=== PATIENT | female | born 1990 | race African-American/Black ===

== ENCOUNTER 2017-06-06 02:58 | Emergency (ER) | payer OTHER ==
[2017-06-06 04:04] VITALS: BP 138/88; PULSE 92; BMI 30.6
--- NOTE | 2017-06-06 04:07 | PDOC ---
History of Present Illness - General History Source: Patient Exam Limitations: No Limitations - History of Present Illness Initial Comments: 06/06/17 04:56 The patient is a 27 year old female with no significant past medical history, who presents to the ED with a worsening toothache that began a week ago. Patient states the toothache has been causing a migraine on the left side of her face. She also has vomiting 2x today. Patient is scheduled to visit the dentist tomorrow. Patient denies fever, chills, diarrhea, hematochezia. Allergies: Penicillin <Andrea Yoon - Last Filed: 06/06/17 04:55> <Megan Preston - Last Filed: 06/06/17 05:20> - General Chief Complaint: Toothache Stated Complaint: MOUTH PAIN Time Seen by Provider: 06/06/17 04:06 Past History <Andrea Yoon - Last Filed: 06/06/17 04:55> - Immunization History Immunization Up to Date: No - Suicide/Smoking/Psychosocial Hx Smoking History: Never smoked Have you smoked in the past 12 months: No Information on smoking cessation initiated: No Hx Alcohol Use: No Drug/Substance Use Hx: No Substance Use Type: None <Megan Preston - Last Filed: 06/06/17 05:20> - Past Medical History Allergies/Adverse Reactions: Allergies Allergy/AdvReac Type Severity Reaction Status Date / Time Penicillins Allergy Mild Rash Verified 06/06/17 04:03 Home Medications: Ambulatory Orders Ibuprofen [Motrin -] 800 mg PO TID PRN #30 tablet 11/30/15 Oseltamivir Phosphate [Tamiflu] 75 mg PO BID #10 capsule 11/30/15 Ibuprofen [Motrin -] 600 mg PO TID #21 tablet 06/06/17 Review of Systems - Review of Systems Able to Perform ROS?: Yes Comments:: 06/06/17 04:56 GENERAL/CONSTITUTIONAL: No fever or chills. No weakness. HEAD, EYES, EARS, NOSE AND THROAT: + toothache. No change in vision. No ear pain or discharge. No sore throat. CARDIOVASCULAR: No chest pain or shortness of breath. RESPIRATORY: No cough, wheezing, or hemoptysis. GASTROINTESTINAL: No nausea, vomiting, diarrhea or constipation. GENITOURINARY: No dysuria, frequency, or change in urination. MUSCULOSKELETAL: No joint or muscle swelling or pain. No neck or back pain. SKIN: No rash NEUROLOGIC: No headache, vertigo, loss of consciousness, or change in strength/ sensation. ENDOCRINE: No increased thirst. No abnormal weight change. HEMATOLOGIC/LYMPHATIC: No anemia, easy bleeding, or history of blood clots. ALLERGIC/IMMUNOLOGIC: No hives or skin allergy. <Andrea Yoon - Last Filed: 06/06/17 04:55> *Physical Exam - Vital Signs Last Vital Signs Temp Pulse Resp BP Pulse Ox 92 H 14 138/88 100 06/06/17 04:03 06/06/17 04:03 06/06/17 04:03 06/06/17 04:03 - Physical Exam Comments: 06/06/17 04:56 GENERAL: Awake, alert, and fully oriented, in no acute distress HEAD: No signs of trauma EYES: PERRLA, EOMI, sclera anicteric, conjunctiva clear ENT: Auricles normal inspection, hearing grossly normal, nares patent, oropharynx clear without exudates. Moist mucosa NECK: Normal ROM, supple, no lymphadenopathy, JVD, or masses LUNGS: Breath sounds equal, clear to auscultation bilaterally. No wheezes, and no crackles HEART: Regular rate and rhythm, normal S1 and S2, no murmurs, rubs or gallops ABDOMEN: Soft, nontender, normoactive bowel sounds. No guarding, no rebound. No masses EXTREMITIES: Normal range of motion, no edema. No clubbing or cyanosis. No cords, erythema, or tenderness NEUROLOGICAL: Cranial nerves II through XII grossly intact. Normal speech, normal gait SKIN: Warm, Dry, normal turgor, no rashes or lesions noted. <Andrea Yoon - Last Filed: 06/06/17 04:55> - Vital Signs Last Vital Signs Temp Pulse Resp BP Pulse Ox 92 H 14 138/88 100 06/06/17 04:03 06/06/17 04:03 06/06/17 04:03 06/06/17 04:03 <Megan Preston - Last Filed: 06/06/17 05:20> ED Treatment Course - Medications Given in the ED: ED Medications Discontinued Medications Generic Name Dose Route Start Last Admin Trade Name Freq PRN Reason Stop Dose Admin Metronidazole 2,000 mg 06/06/17 04:41 06/06/17 04:47 Flagyl - PO 06/06/17 04:42 2,000 mg NOW ONE Administration Oxycodone/Acetaminophen 2 combo 06/06/17 04:42 06/06/17 04:47 Percocet 5/325 - PO 06/06/17 04:43 2 combo ONCE ONE Administration <Andrea Yoon - Last Filed: 06/06/17 04:55> *DC/Admit/Observation/Transfer - Attestations Scribe Attestion: 06/06/17 04:56 Documentation prepared by Andrea Yoon, acting as medical unit secretary for Megan Preston MD. <Andrea Yoon - Last Filed: 06/06/17 04:55> - Discharge Dispostion Admit: No <Megan Preston - Last Filed: 06/06/17 05:20> Diagnosis at time of Disposition: Tooth ache - Discharge Dispostion Disposition: HOME Condition at time of disposition: Improved - Patient Instructions Printed Discharge Instructions: DI for Tooth Decay, DI for Dental Pain
[2017-06-06] MEDS ORDERED: metroNIDAZOLE 250 MG TABLET PO ONE (04:41)
[2017-06-06] MEDS ORDERED: IBUPROFEN 600 MG TABLET (FP) PO ONE (04:42)
[2017-06-06] MEDS ORDERED: metroNIDAZOLE 250 MG TABLET ONE (04:45)
== END 2017-06-06 05:25 | disposition home or self-care (01) ==
LOC: JER 02:58
DX: K08.89 Other specified disorders of teeth and supporting structures (principal)
CPT/HCPCS: 99281-25

== ENCOUNTER 2018-10-04 17:29 | Emergency (ER) | payer OTHER ==
--- NOTE | 2018-10-04 17:41 | PDOC ---
Rapid Medical Evaluation Time Seen by Provider: 10/04/18 17:39 Medical Evaluation: Allergies Allergy/AdvReac Type Severity Reaction Status Date / Time Penicillins Allergy Mild Rash Verified 06/06/17 04:03 10/04/18 17:39 I performed a brief in-person evaluation of this patient. Chief complaint is: Right axillary abscess, reports fevers/malaise at home Pertinent physical exam findings include: T 100.5, HR 111. right axillary abscess with some surrounding erythema I have ordered the following: Basic labs, cultures Patient will proceed to the ED for further evaluation. Discharge Disposition - Diagnosis Abscess, SIRS (systemic inflammatory response syndrome) - Referrals - Patient Instructions - Post Discharge Activity
[2018-10-04 17:43] VITALS: BP 130/80; PULSE 112; TEMP 100.5; BMI 29.9
[2018-10-04 18:56] LABS: BASO % 0.2 % (0-2.0); EOS % 0.9 % (0-4.5); HEMATOCRIT 38.2 % (32.4-45.2); HEMOGLOBIN 12.9 GM/dL (10.7-15.3); LYMPH % 15.4 % (8-40); MCH 29.7 pg (25.7-33.7); MCHC 33.7 g/dl (32.0-36.0); MEAN PLT VOLUME 9.2 fl (7.5-11.1); MONO % 7.5 % (3.8-10.2); PLATELET COUNT 284 K/MM3 (134-434); RBC 4.33 M/mm3 (3.60-5.2); RDW 12.8 % (11.6-15.6); WHITE BLOOD COUNT 14.4 K/mm3 (4.0-10.0)
[2018-10-04] MEDS ORDERED: ACETAMINOPHEN 325 MG TABLET (FP) PO ONE (19:09)
[2018-10-04] MEDS ORDERED: SODIUM CHLORIDE 0.9% 500 ML INFUS.BAG IV ONE (19:09)
[2018-10-04] MEDS ORDERED: ACETAMINOPHEN 325 MG TABLET (FP) ONE (19:17)
--- NOTE | 2018-10-04 19:27 | PDOC ---
History of Present Illness - General Chief Complaint: Wound Stated Complaint: SWOLLEN RT ARM Time Seen by Provider: 10/04/18 17:39 - History of Present Illness Initial Comments: The patient is a 28F w/ no reported PMH who presents for evaluation of 1wk of R axillary swelling/pain w/ associated fevers. Denies injury/trauma/wound to the area. Endorses concominant L wrist pain that is intermittent w/o overlying erythema or swelling and w/o recent trauma. Denies migrating joint pain or other arthritis. Denies history of skin infections Endorses distant history of chlamydia s/p treatment Endorses multiple sexual partners w/ intermittent use of condoms 10/04/18 19:20 Past History - Past Medical History Allergies/Adverse Reactions: Allergies Allergy/AdvReac Type Severity Reaction Status Date / Time Penicillins Allergy Mild Rash Verified 06/06/17 04:03 Home Medications: Ambulatory Orders Ibuprofen [Motrin -] 800 mg PO TID PRN #30 tablet 11/30/15 Cephalexin Monohydrate [Keflex -] 500 mg PO Q6H 10 Days #40 capsule 10/04/18 Sulfamethoxazole/Trimethoprim [Bactrim Ds -] 2 tab PO BID 10 Days #40 tablet Asthma: Yes COPD: No - Surgical History Cardiac Surgery: No Lung Surgery: No - Immunization History Immunization Up to Date: No - Suicide/Smoking/Psychosocial Hx Smoking History: Never smoked Have you smoked in the past 12 months: No Information on smoking cessation initiated: No Hx Alcohol Use: No Drug/Substance Use Hx: No Substance Use Type: None Review of Systems - Review of Systems Able to Perform ROS?: Yes Comments:: GENERAL/CONSTITUTIONAL: No chills. No weakness HEAD, EYES, EARS, NOSE AND THROAT: No change in vision. No ear pain or discharge. No sore throat CARDIOVASCULAR: No chest pain or shortness of breath RESPIRATORY: Denies cough, hemoptysis GASTROINTESTINAL: No nausea, vomiting, diarrhea or constipation GENITOURINARY: No dysuria, frequency, or change in urination MUSCULOSKELETAL: +L wrist pain SKIN: R axillary per HPI NEUROLOGIC: No headache, vertigo, loss of consciousness, or change in strength/ sensation ENDOCRINE: No increased thirst. No abnormal weight change HEMATOLOGIC/LYMPHATIC: No anemia, easy bleeding, or history of blood clots ALLERGIC/IMMUNOLOGIC: No hives or skin allergy 10/04/18 19:27 Is the patient limited [place]ian proficient: No *Physical Exam - Vital Signs Last Vital Signs Temp Pulse Resp BP Pulse Ox 100.5 F H 112 H 18 130/80 97 10/04/18 17:40 10/04/18 17:40 10/04/18 17:40 10/04/18 17:40 10/04/18 17:40 - Physical Exam Comments: GENERAL: Awake, alert, and fully oriented, in no acute distress HEAD: No signs of trauma, normocephalic, atraumatic EYES: PERRLA, EOMI, sclera anicteric, conjunctiva clear ENT: Hearing grossly normal, nares patent, oropharynx clear without exudates. Moist mucosa LUNGS: No distress, speaks full sentences, clear to auscultation bilaterally HEART: Regular rate and rhythm, normal S1 and S2, no murmurs appreciated, peripheral pulses normal and equal bilaterally ABDOMEN: Soft, nontender, normoactive bowel sounds. No guarding, no rebound. No masses EXTREMITIES : R proximal brachial/axillary swelling/induration/erythema w/ underlying fluctuance (approx 3cm x 3cm on exam) that is exquisitely TTP NEUROLOGICAL: Cranial nerves II through XII grossly intact. Normal speech, normal gait, no focal sensorimotor deficits SKIN: Warm, Dry 10/04/18 23:12 Moderate Sedation - Procedure Monitoring Vital Signs: Procedure Monitoring Vital Signs Temperature 100.5 F H 10/04/18 17:40 Pulse Rate 112 H 10/04/18 17:40 Respiratory Rate 18 10/04/18 17:40 Blood Pressure 130/80 10/04/18 17:40 O2 Sat by Pulse Oximetry (%) 97 10/04/18 17:40 Procedures - Incision and Drainage I&D Site: Right: Axilla Anesthesia: 1% Lidocaine w/ Epi Volume(ml): 8 Blade Size: 11 Attempts: 1 Iodinated Packin in Dressing: Yes (dry gauze, kerlix) ED Treatment Course - LABORATORY CBC & Chemistry Diagram: 10/04/18 18:13 10/04/18 18:13 - ADDITIONAL ORDERS Additional order review: 10/04/18 18:13 RBC 4.33 MCV 88.0 MCHC 33.7 RDW 12.8 MPV 9.2 Neutrophils % 76.0 Lymphocytes % 15.4 Monocytes % 7.5 Eosinophils % 0.9 Basophils % 0.2 Medical Decision Making - Medical Decision Making The pt is a 28F w/ no reported PMH who presents for evaluation of 1wk of R axillary swelling/tenderness/induration concerning for abscess ED Course CMP, CBC Tylenol 975mg PO once NS 1L IV once 10/04/18 19:28 Leukocytosis to 14 10/04/18 19:30 POCUS of RUE lesion w/ approx 1cm x 1cm soft tissue loculated fluid collection consistent w/ abscess S/p I&D of R axillary abscess, for further details, refer to procedure note -Wound culture sent -Vanc 1g IV once Plan for patient to be admitted to obs given leukocytosis, fever on presentation , and abscess -Patient states she has an important interview in the morning and is unwilling to stay for obs -Rx sent to pt's pharmacy for Bactrim and Keflex -Wound care instructions, discharge instructions, return precautions, and follow up instructions given -Patient verbalized understanding Note: The patient insists on leaving the emergency dept and is signing out against medical advice. The patient understands the risks and complications that may result from the refusal of medical care and admission which includes and permanent disability. The patient has the mental capacity of understanding the risks of refusing care and is capable of making an informed decision. The patient was instructed to return to the emergency department should she change her mind regarding medical care or should her condition worsen. Dispo: AMA 10/04/18 23:14 *DC/Admit/Observation/Transfer Diagnosis at time of Disposition: Abscess, SIRS (systemic inflammatory response syndrome) - Discharge Dispostion Disposition: AGAINST MEDICAL ADVICE Condition at time of disposition: Stable Decision to Admit order: No - Prescriptions Prescriptions: Cephalexin Monohydrate [Keflex -] 500 mg PO Q6H 10 Days #40 capsule Sulfamethoxazole/Trimethoprim [Bactrim Ds -] 2 tab PO BID 10 Days #40 tablet - Referrals Referrals: [facility] [place] [place] [Provider Group] Mateusz Chino MD [Staff Physician] - - Patient Instructions Printed Discharge Instructions: DI for Skin Abscess Additional Instructions: You were seen in the Emergency Department today for a right axially abscess was drained. Be sure to remove the packing, wash the wound with soap and water, pat dry, and re-pack. Return to the Emergency Department if you develop fevers/ chills, redness, increased drainage, worsening pain, or any new/concerning symptoms. Review the handout given at discharge. Follow up with your primary care provider and the referral given. A prescription for antibiotics was sent to your pharmacy, [facility] on [address] ( Keflex and Bactrim). Take as directed. - Post Discharge Activity Forms/Work/School Notes: Back to Work
[2018-10-04 19:29] LABS: ALBUMIN 4.1 g/dl (3.4-5.0); ALK PHOS 76 U/L (45-117); ANION GAP 8 MMOL/L (8-16); BILIRUBIN,TOTAL 0.6 mg/dL (0.2-1); BLOOD UREA NITROGEN 6 mg/dL (7-18); CALCIUM 9.2 mg/dL (8.5-10.1); CHLORIDE 106 mmol/L (98-107); CO2 25 mmol/L (21-32); CREATININE 0.7 mg/dL (0.55-1.3); GLUCOSE,RANDOM 90 mg/dL (74-106); POTASSIUM 3.8 mmol/L (3.5-5.1); SGOT/AST 15 U/L (15-37); SGPT/ALT 49 U/L (13-61); SODIUM 139 mmol/L (136-145); TOT PROT 7.9 g/dl (6.4-8.2)
--- NOTE | 2018-10-04 19:43 | PDOC ---
Attending Attestation - HPI HPI: This patient is a 28 year old female with no significant PMHxm who presents with 1 week of right armpit pain and swelling. Patient reports fevers and general malaise at home. She also reports intermittent left wrist pain. She denies any recent injuries or trauma. - Physicial Exam PE: GENERAL: Awake, alert, and fully oriented, in no acute distress. Febrile. HEAD: No signs of trauma EYES: PERRLA, EOMI, sclera anicteric, conjunctiva clear. NECK: Normal ROM, supple, no lymphadenopathy, JVD, or masses LUNGS: Breath sounds equal, clear to auscultation bilaterally. No wheezes, and no crackles HEART: Tachycardic, regular rhythm, normal S1 and S2, no murmurs, rubs or gallops ABDOMEN: Soft, nontender, normoactive bowel sounds. No guarding, no rebound. No masses EXTREMITIES: Right arm at the upper portion of the armpit - 1x1 cm abscess with fluctuance, mild surrounding errythema, more fluctuance and indurated, hot and tender to touch. Pulses and sensation intact in arm. No crepitus palpated. Normal range of motion. No clubbing or cyanosis. No cords. NEUROLOGICAL: Cranial nerves II through XII grossly intact. Normal speech, normal gait SKIN: Hot to touch. Bedside US shows 1 by 1 cm right axillary abscesses on skin , no tracking underneath fascial planes. No track camp in the arms. <Mariana Sky - Last Filed: 10/04/18 22:18> - Resident Resident Name: Pito José - ED Attending Attestation I have performed the following: I have examined & evaluated the patient, The case was reviewed & discussed with the resident, I agree w/resident's findings & plan, Exceptions are as noted - Medical Decision Making 10/04/18 19:42 I, Dr. Keira Lopez, DO, attest that this document has been prepared under my direction and personally reviewed by me in its entirety. I further attest, that it accurately reflects all work, treatment, procedures and medical decision -making performed by me. 10/04/18 21:05 a/p: 28yo female with R armpit abscess -worsening pain x 1 week -fever today -will send labs, cultures, will need iv abx -will send wound cultures -will give ivf hydraiton, tylenol, LET and then I&D the abscess -will give iv vanco 10/04/18 21:08 fever, tachy, elevated wbc will place in obs for iv abx 10/04/18 22:14 pt s/p I&D by the resident culture sent from the wound will give iv vanco pt states she cannot stay for obs or in the hospital as she has an important interview in the AM states she will take oral abx and sign out ama willing to stay for 1 dose of iv abx tonight vanco hanging will dc with bactrim/keflex 10/04/18 22:17 Note: The patient insists on leaving the emergency dept and is signing out against medical advice. The patient understands the risks and complications that may result from the refusal of medical care and admission which includes and permanent disability. The patient has the mental capacity of understanding the risks of refusing care and is capable of making an informed decision. The patient was instructed to return to the emergency department should she change she mind regarding medical care or should she condition worsen. The patient signed the Against Medical Advice form. 10/04/18 22:55 discussed risk of worsening infection by signing out AMA discussed risk of infection in the blood <Keira Lopez - Last Filed: 10/04/18 23:56> *DC/Admit/Observation/Transfer <Keira Lopez - Last Filed: 10/04/18 23:56> Diagnosis at time of Disposition: Abscess, SIRS (systemic inflammatory response syndrome) - Discharge Dispostion Disposition: AGAINST MEDICAL ADVICE Condition at time of disposition: Stable - Prescriptions Prescriptions: Cephalexin Monohydrate [Keflex -] 500 mg PO Q6H 10 Days #40 capsule Sulfamethoxazole/Trimethoprim [Bactrim Ds -] 2 tab PO BID 10 Days #40 tablet - Referrals Referrals: [facility] [place] [facility] [place] [Provider Group] Mateusz Chino MD [Staff Physician] - - Patient Instructions Printed Discharge Instructions: DI for Skin Abscess Additional Instructions: You were seen in the Emergency Department today for a right axially abscess was drained. Be sure to remove the packing, wash the wound with soap and water, pat dry, and re-pack. Return to the Emergency Department if you develop fevers/ chills, redness, increased drainage, worsening pain, or any new/concerning symptoms. Review the handout given at discharge. Follow up with your primary care provider and the referral given. A prescription for antibiotics was [facility], [facility] [address] ( Keflex and Bactrim). Take as directed. - Post Discharge Activity Forms/Work/School Notes: Back to Work
[2018-10-04] MEDS ORDERED: LIDOCAINE 2.5%/PRILOCAINE 2.5% (5 Gram/TUBE) TP ONE ×2 (20:41→21:04)
[2018-10-04] MEDS ORDERED: VANCOMYCIN 1 GRAM (PRE-DOCKED) 1,000 MG/250 ML BAG IVPB ONE ×2 (20:42→22:26)
[2018-10-04] MEDS ORDERED: IBUPROFEN 400 MG TABLET (FP) PO ONE ×2 (21:26→21:39)
[2018-10-04] MEDS ORDERED: LIDOCAINE 1%/EPI 1:100000 (50 ML MULTI DOSE VIAL) INF ONE (21:26)
[2018-10-04] MEDS ORDERED: LIDOCAINE 1%/EPI 1:100000 (20 ML MULTI DOSE VIAL) ONE (21:39)
[2018-10-04] MEDS ORDERED: diphenhydrAMINE HCL 25 MG CAPSULE (FP) PO ONE ×2 (23:05→23:25)
[2018-10-04 23:29] LABS: URINE APPEARANCE CLOUDY; URINE BILIRUBIN NEGATIVE (<2.0 mg/dL); URINE COLOR AMBER; URINE GLUCOSE (UA) NEGATIVE (NEGATIVE); URINE KETONE 1+ (NEGATIVE); URINE LEUK ESTERASE 1+ (NEGATIVE); URINE NITRITE NEGATIVE (NEGATIVE); URINE PROTEIN 2+ (NEGATIVE); URINE UROBILINOGEN NEGATIVE mg/dL (0.2-1.0)
[2018-10-04 23:37] LABS: EPI CELLS FEW /HPF (FEW); URINE BACTERIA RARE /hpf (NONE SEEN); URINE HYALINE CAST 5 /lpf; URINE MUCUS MANY
== END 2018-10-05 00:04 | disposition left against medical advice (07) ==
LOC: JER 17:29
PROC: 3E0337Z Introduction of Electrolytic and Water Balance Substance into Peripheral Vein, Percutaneous Approach (ICD-10-PCS; principal; 2018-10-04)
PROC: 3E03329 Introduction of Other Anti-infective into Peripheral Vein, Percutaneous Approach (ICD-10-PCS; 2018-10-04)
PROC: 0H9BXZZ Drainage of Right Upper Arm Skin, External Approach (ICD-10-PCS; 2018-10-04)
DX: L02.91 Cutaneous abscess, unspecified (principal); R65.10 Systemic inflammatory response syndrome (SIRS) of non-infectious origin without acute organ dysfunction
CPT/HCPCS: 36415; 80053; 81003; 81015; 83605; 84703; 85025; 87040; 87070; 87086; 87186; 87205; 99282-25

== ENCOUNTER 2021-05-07 00:17 | Emergency (ER) | payer OTHER ==
[2021-05-07 00:30] VITALS: BMI 33.0
[2021-05-07] MEDS ORDERED: SODIUM CHLORIDE 0.9% 500 ML INFUS.BAG IV ONE (02:21)
[2021-05-07 03:35] LABS: BASO % 0.8 % (0-2.0); HEMATOCRIT 37.3 % (32.4-45.2); HEMOGLOBIN 12.6 GM/dL (10.7-15.3); LYMPH % 21.8 % (8-40); MCH 29.3 pg (25.7-33.7); MCHC 33.8 g/dl (32.0-36.0); MEAN CELL VOLUME 86.7 fl (80-96); MEAN PLT VOLUME 8.8 fl (7.5-11.1); MONO % 8.3 % (3.8-10.2); NEUT % 67.1 % (42.8-82.8); PLATELET COUNT 241 10^3/uL (134-434); RDW 13.9 % (11.6-15.6); WHITE BLOOD COUNT 8.3 K/mm3 (4.0-10.0)
[2021-05-07 03:54] LABS: CHLORIDE 105 mmol/L (98-107); SODIUM 134 mmol/L (136-145)
[2021-05-07 03:58] LABS: ALBUMIN 3.5 g/dl (3.4-5.0); BLOOD UREA NITROGEN 6.4 mg/dL (7-18); CALCIUM 8.3 mg/dL (8.5-10.1); CO2 23 mmol/L (21-32); GLUCOSE,RANDOM 87 mg/dL (74-106)
[2021-05-07 04:00] LABS: CREATININE 0.8 mg/dL (0.55-1.3); SGOT/AST 93 U/L (15-37)
[2021-05-07 04:04] LABS: ALK PHOS 59 U/L (45-117)
[2021-05-07 04:24] LABS: ANION GAP 5 MMOL/L (8-16); BILIRUBIN,TOTAL 0.4 mg/dL (0.2-1); SGPT/ALT 39 U/L (13-61)
[2021-05-07] MEDS ORDERED: morphine SULFATE 4 MG/ML VIAL IVPUSH ONE (06:07)
[2021-05-07] MEDS ORDERED: ACETAMINOPHEN 1000 MG/100 ML VIAL (NON FORMULARY) IVPB ONE (06:24)
[2021-05-07] MEDS ORDERED: FAMOTIDINE 20 MG/50 ML IVPB 20 MG/50 ML MG IVPB ONE ×2 (06:24→06:30)
[2021-05-07] MEDS ORDERED: morphine SULFATE 4 MG/ML VIAL ONE (06:30)
[2021-05-07] MEDS ORDERED: ACETAMINOPHEN INJECTION 100 ML IVPB ONE (06:30)
[2021-05-07 07:01] VITALS: BP 103/69; PULSE 100
[2021-05-07] MEDS ORDERED: IBUPROFEN 600 MG TABLET (FP) PO ONE (08:50)
[2021-05-07 09:12] VITALS: TEMP 98.3
[2021-05-07 09:27] LABS: BLOOD UREA NITROGEN 6.1 mg/dL (7-18); CALCIUM 7.6 mg/dL (8.5-10.1)
[2021-05-07 09:30] LABS: CREATININE 0.7 mg/dL (0.55-1.3)
[2021-05-07 10:34] LABS: SARS COV-2 MOLECULAR Presumptive Positive (Negative)
[2021-05-08 10:08] LABS: SARS-CoV-2 NAA Detected (Not Detected)
== END 2021-05-07 10:22 ==
LOC: JER 00:17
PROC: 3E0333Z Introduction of Anti-inflammatory into Peripheral Vein, Percutaneous Approach (ICD-10-PCS; principal; 2021-05-07)
PROC: 3E033GC Introduction of Other Therapeutic Substance into Peripheral Vein, Percutaneous Approach (ICD-10-PCS; 2021-05-07)
PROC: 3E033NZ Introduction of Analgesics, Hypnotics, Sedatives into Peripheral Vein, Percutaneous Approach (ICD-10-PCS; 2021-05-07)
DX: A09 Infectious gastroenteritis and colitis, unspecified (principal); R19.7 Diarrhea, unspecified
CPT/HCPCS: 36415; 74177-TC; 80048; 80053; 82272; 84703; 85025; 99285-25; C9803; J0131; Q9967; U0003; U0005

== ENCOUNTER 2021-05-13 10:24 | Inpatient (IN) | payer OTHER ==
[2021-05-13] MEDS ORDERED: ACETAMINOPHEN 1000 MG/100 ML VIAL (NON FORMULARY) IVPB ONE (11:14)
[2021-05-13] MEDS ORDERED: SODIUM CHLORIDE 1,000 ML IV STA (11:14)
[2021-05-13] MEDS ORDERED: DEXAMETHASONE SOD PHOSPHATE 4 MG/1 ML VIAL IVPUSH ONE (11:14)
[2021-05-13] MEDS ORDERED: ACETAMINOPHEN INJECTION 100 ML IVPB ONE (11:20)
[2021-05-13] MEDS ORDERED: DEXAMETHASONE SOD PHOSPHATE 10 MG/1 ML VIAL ONE (11:20)
[2021-05-13 12:06] LABS: HEMATOCRIT 39.3 % (32.4-45.2); HEMOGLOBIN 13.3 GM/dL (10.7-15.3); MCH 29.4 pg (25.7-33.7); MCHC 33.8 g/dl (32.0-36.0); MEAN CELL VOLUME 86.9 fl (80-96); MEAN PLT VOLUME 8.4 fl (7.5-11.1); PLATELET COUNT 301 10^3/uL (134-434); RBC 4.52 M/mm3 (3.60-5.2); RDW 14.1 % (11.6-15.6); WHITE BLOOD COUNT 13.3 K/mm3 (4.0-10.0)
[2021-05-13 12:08] LABS: VENOUS O2 SATURATION 23.2 % (70-80); VENOUS PCO2 42.7 mmHg (38-52); VENOUS PH 7.416 (7.310-7.410)
[2021-05-13 12:13] LABS: INR 1.29 (0.83-1.09); PROTHROMBIN TIME (PATIENT) 15.5 SEC (9.7-13.0)
[2021-05-13 12:16] LABS: ACTIVATED PTT 27.5 SECONDS (25.2-36.5)
[2021-05-13 12:35] LABS: CHLORIDE 101 mmol/L (98-107); SODIUM 136 mmol/L (136-145)
[2021-05-13 12:38] LABS: ANION GAP 9 MMOL/L (8-16); CALCIUM 8.2 mg/dL (8.5-10.1); CO2 26 mmol/L (21-32); GLUCOSE,RANDOM 90 mg/dL (74-106)
[2021-05-13 12:41] LABS: CREATININE 0.9 mg/dL (0.55-1.3); SGOT/AST 32 U/L (15-37); SGPT/ALT 45 U/L (13-61)
[2021-05-13 12:42] LABS: BILIRUBIN,DIRECT 0.1 mg/dL (0.0-0.2)
[2021-05-13 12:43] LABS: BILIRUBIN,TOTAL 0.3 mg/dL (0.2-1); TOT PROT 7.3 g/dl (6.4-8.2)
[2021-05-13 12:44] LABS: ALK PHOS 60 U/L (45-117)
[2021-05-13 13:00] LABS: ALBUMIN 3.3 g/dl (3.4-5.0)
[2021-05-13 13:15] LABS: ANISOCYTOSIS 0; HELMET CELLS 0; HOWELL-JOLLY BODIES 0; MACROCYTOSIS 0; OVALOCYTE 0; PLATELET ESTIMATE NORMAL; ROULEAU 0; SICKELED CELLS 0; TARGET CELLS 0; TEAR DROP CELLS 0; TOXIC GRANULATION 0
[2021-05-13 14:37] LABS: LDH 352 U/L (84-246)
[2021-05-13 15:19] LABS: EPI CELLS >36 /uL (0-25.1); HYALINE CASTS 1 /uL (0-3.1); PH,URINE 6.5 (5.0-8.0); URINE APPEARANCE CLOUDY; URINE BACTERIA 1877 /uL (0-1359); URINE BILIRUBIN NEGATIVE (NEGATIVE); URINE COLOR YELLOW; URINE GLUCOSE (UA) NEGATIVE (NEGATIVE); URINE KETONE NEGATIVE (NEGATIVE); URINE LEUK ESTERASE 2+ (NEGATIVE); URINE NITRITE NEGATIVE (NEGATIVE); URINE PROTEIN NEGATIVE (NEGATIVE); URINE RBC 145 /uL (0-23.9); URINE UROBILINOGEN 0.2 mg/dL (0.2-1.0); URINE WBC 79 /uL (0-25.8)
[2021-05-14] MEDS ORDERED: ALBUTEROL SO4 0.083% IH SOL 2.5 MG/3 ML VIAL.NEB. NEB PRN (00:12)
[2021-05-14] MEDS ORDERED: ACETAMINOPHEN 325 MG TABLET (FP) ONE ×2 (00:28→07:09)
[2021-05-14] MEDS: ACETAMINOPHEN 325 MG TABLET (FP) PO PRN ×2 (00:34→07:17)
[2021-05-14] MEDS ORDERED: ENOXAPARIN NA (PORCINE) 40 MG/0.4 ML DISP.SYRIN SQ ONE (08:57)
[2021-05-14] MEDS ORDERED: FAMOTIDINE 10 MG TABLET ONE (08:57)
[2021-05-14] MEDS ORDERED: DEXAMETHASONE SOD PHOSPHATE 10 MG/1 ML VIAL ONE (08:57)
[2021-05-14] MEDS ORDERED: NITROFURANTOIN MACROCRYSTAL 50 MG CAPSULE (FP) ONE (08:57)
[2021-05-14] MEDS ORDERED: CHOLECALCIFEROL (VIT D3) 1,000 UNIT (25 MCG) TABLET ONE (08:58)
[2021-05-14] MEDS ORDERED: ASCORBIC ACID 500 MG TABLET (FP) ONE (08:58)
[2021-05-14] MEDS: NITROFURANTOIN MACROCRYSTAL 50 MG CAPSULE (FP) PO SCH (09:10)
[2021-05-14] MEDS: ENOXAPARIN NA (PORCINE) 40 MG/0.4 ML DISP.SYRIN SQ SCH (09:11)
[2021-05-14] MEDS: ZINC SULFATE 220 MG CAPSULE (FP) PO SCH (09:11)
[2021-05-14] MEDS: DEXAMETHASONE SOD PHOSPHATE 4 MG/1 ML VIAL IVPUSH SCH (09:11)
[2021-05-14] MEDS: CHOLECALCIFEROL (VIT D3) 5000 UNITS (125 MCG) CAP PO SCH (09:11)
[2021-05-14] MEDS: FAMOTIDINE 10 MG TABLET PO SCH (09:11)
[2021-05-14] MEDS: ASCORBIC ACID 500 MG TABLET (FP) PO SCH (09:11)
[2021-05-14 09:15] LABS: HEMATOCRIT 34.6 % (32.4-45.2); HEMOGLOBIN 11.8 GM/dL (10.7-15.3); MCH 29.6 pg (25.7-33.7); MCHC 34.2 g/dl (32.0-36.0); MEAN CELL VOLUME 86.6 fl (80-96); MEAN PLT VOLUME 8.3 fl (7.5-11.1); PLATELET COUNT 268 10^3/uL (134-434); RDW 14.1 % (11.6-15.6); WHITE BLOOD COUNT 11.1 K/mm3 (4.0-10.0)
[2021-05-14 09:45] LABS: CALCIUM 8.2 mg/dL (8.5-10.1)
[2021-05-14 09:46] LABS: BLOOD UREA NITROGEN 11.6 mg/dL (7-18); MAGNESIUM 2.2 mg/dL (1.8-2.4)
[2021-05-14 09:48] LABS: CREATININE 0.6 mg/dL (0.55-1.3)
[2021-05-14 09:49] LABS: PHOSPHOROUS 3.2 mg/dL (2.5-4.9)
[2021-05-14 09:50] LABS: BILIRUBIN,TOTAL 0.4 mg/dL (0.2-1); TOT PROT 6.4 g/dl (6.4-8.2)
[2021-05-14 09:54] LABS: ALBUMIN 2.8 g/dl (3.4-5.0)
[2021-05-14] MEDS ORDERED: REMDESIVIR 200 MG in SODIUM CHLORIDE 250 ML IVPB ONE (15:00)
[2021-05-15 09:30] LABS: HEMATOCRIT 34.1 % (32.4-45.2); HEMOGLOBIN 11.8 GM/dL (10.7-15.3); MCHC 34.5 g/dl (32.0-36.0); MEAN CELL VOLUME 87.1 fl (80-96); MEAN PLT VOLUME 8.6 fl (7.5-11.1); PLATELET COUNT 279 10^3/uL (134-434); RBC 3.92 M/mm3 (3.60-5.2); WHITE BLOOD COUNT 9.2 K/mm3 (4.0-10.0)
[2021-05-15 10:16] LABS: CALCIUM 8.5 mg/dL (8.5-10.1)
[2021-05-15 10:17] LABS: ALBUMIN 2.8 g/dl (3.4-5.0); BLOOD UREA NITROGEN 11.9 mg/dL (7-18)
[2021-05-15 10:20] LABS: CREATININE 0.5 mg/dL (0.55-1.3)
[2021-05-15 10:21] LABS: TOT PROT 6.7 g/dl (6.4-8.2)
[2021-05-15] MEDS: ENOXAPARIN NA (PORCINE) 40 MG/0.4 ML DISP.SYRIN SQ SCH (10:21)
[2021-05-15] MEDS: FAMOTIDINE 10 MG TABLET PO SCH (10:21)
[2021-05-15] MEDS: CHOLECALCIFEROL (VIT D3) 5000 UNITS (125 MCG) CAP PO SCH (10:21)
[2021-05-15] MEDS: ASCORBIC ACID 500 MG TABLET (FP) PO SCH (10:21)
[2021-05-15] MEDS: ZINC SULFATE 220 MG CAPSULE (FP) PO SCH (10:21)
[2021-05-15] MEDS: DEXAMETHASONE SOD PHOSPHATE 4 MG/1 ML VIAL IVPUSH SCH (10:21)
[2021-05-15] MEDS: NITROFURANTOIN MACROCRYSTAL 50 MG CAPSULE (FP) PO SCH (10:24)
[2021-05-15 10:25] LABS: BILIRUBIN,TOTAL 0.3 mg/dL (0.2-1)
[2021-05-15 10:50] LABS: ERYTHROCYTE SEDIMENTATION RATE 62 mm/hr (0-20)
[2021-05-15 12:07] LABS: ANISOCYTOSIS 1+; MACROCYTOSIS 0; OVALOCYTE 1+; PLATELET ESTIMATE NORMAL; TEAR DROP CELLS 1+
[2021-05-15] MEDS: REMDESIVIR 100 MG in SODIUM CHLORIDE 250 ML IVPB SCH (14:55)
[2021-05-16] MEDS: ACETAMINOPHEN 325 MG TABLET (FP) PO PRN (03:46)
[2021-05-16 08:26] LABS: ALBUMIN 2.9 g/dl (3.4-5.0); BLOOD UREA NITROGEN 12.5 mg/dL (7-18); CALCIUM 8.6 mg/dL (8.5-10.1)
[2021-05-16 08:30] LABS: CREATININE 0.6 mg/dL (0.55-1.3)
[2021-05-16 08:31] LABS: BILIRUBIN,TOTAL 0.3 mg/dL (0.2-1); TOT PROT 6.9 g/dl (6.4-8.2)
[2021-05-16] MEDS ORDERED: PT OWN MED DRAWER 7, Y5N ONE (10:33)
[2021-05-16] MEDS: FAMOTIDINE 10 MG TABLET PO SCH (10:41)
[2021-05-16] MEDS: ENOXAPARIN NA (PORCINE) 40 MG/0.4 ML DISP.SYRIN SQ SCH (10:41)
[2021-05-16] MEDS: DEXAMETHASONE SOD PHOSPHATE 4 MG/1 ML VIAL IVPUSH SCH (10:41)
[2021-05-16] MEDS: ASCORBIC ACID 500 MG TABLET (FP) PO SCH (10:41)
[2021-05-16] MEDS: CHOLECALCIFEROL (VIT D3) 5000 UNITS (125 MCG) CAP PO SCH (10:41)
[2021-05-16] MEDS: ZINC SULFATE 220 MG CAPSULE (FP) PO SCH (10:41)
[2021-05-16] MEDS: REMDESIVIR 100 MG in SODIUM CHLORIDE 250 ML IVPB SCH (14:49)
[2021-05-16] MEDS ORDERED: ALBUTEROL SO4 HFA INHALER IH PRN (15:05)
[2021-05-16 16:01] VITALS: BMI 30.1
[2021-05-17 08:17] LABS: CALCIUM 8.9 mg/dL (8.5-10.1)
[2021-05-17 08:18] LABS: ALBUMIN 2.9 g/dl (3.4-5.0)
[2021-05-17 08:19] LABS: BLOOD UREA NITROGEN 12.4 mg/dL (7-18)
[2021-05-17 08:21] LABS: CREATININE 0.6 mg/dL (0.55-1.3)
[2021-05-17 08:22] LABS: BILIRUBIN,TOTAL 0.2 mg/dL (0.2-1)
[2021-05-17 08:23] LABS: TOT PROT 6.8 g/dl (6.4-8.2)
[2021-05-17] MEDS ORDERED: PT OWN MED DRAWER 7, Y5N ONE (09:49)
[2021-05-17] MEDS: ZINC SULFATE 220 MG CAPSULE (FP) PO SCH (10:01)
[2021-05-17] MEDS: FAMOTIDINE 10 MG TABLET PO SCH (10:02)
[2021-05-17] MEDS: ASCORBIC ACID 500 MG TABLET (FP) PO SCH (10:02)
[2021-05-17] MEDS: CHOLECALCIFEROL (VIT D3) 5000 UNITS (125 MCG) CAP PO SCH (10:02)
[2021-05-17] MEDS: DEXAMETHASONE SOD PHOSPHATE 4 MG/1 ML VIAL IVPUSH SCH (10:02)
[2021-05-17] MEDS: ENOXAPARIN NA (PORCINE) 40 MG/0.4 ML DISP.SYRIN SQ SCH (10:02)
[2021-05-17] MEDS: REMDESIVIR 100 MG in SODIUM CHLORIDE 250 ML IVPB SCH (14:46)
[2021-05-18] MEDS ORDERED: PT OWN MED DRAWER 7, Y5N ONE ×2 (09:09→13:09)
[2021-05-18] MEDS: FAMOTIDINE 10 MG TABLET PO SCH (09:16)
[2021-05-18] MEDS: CHOLECALCIFEROL (VIT D3) 5000 UNITS (125 MCG) CAP PO SCH (09:16)
[2021-05-18] MEDS: ASCORBIC ACID 500 MG TABLET (FP) PO SCH (09:16)
[2021-05-18] MEDS: ZINC SULFATE 220 MG CAPSULE (FP) PO SCH (09:16)
[2021-05-18] MEDS: ENOXAPARIN NA (PORCINE) 40 MG/0.4 ML DISP.SYRIN SQ SCH (09:17)
[2021-05-18 10:29] LABS: HEMATOCRIT 39.7 % (32.4-45.2); HEMOGLOBIN 13.3 GM/dL (10.7-15.3); MCH 29.4 pg (25.7-33.7); MCHC 33.5 g/dl (32.0-36.0); MEAN CELL VOLUME 87.6 fl (80-96); PLATELET COUNT 344 10^3/uL (134-434); RBC 4.53 M/mm3 (3.60-5.2); RDW 13.8 % (11.6-15.6)
[2021-05-18] MEDS: DEXAMETHASONE SOD PHOSPHATE 4 MG/1 ML VIAL IVPUSH SCH (10:30)
[2021-05-18 10:49] LABS: ALBUMIN 3.2 g/dl (3.4-5.0); BLOOD UREA NITROGEN 12.3 mg/dL (7-18); MAGNESIUM 2.3 mg/dL (1.8-2.4)
[2021-05-18 10:52] LABS: CREATININE 0.7 mg/dL (0.55-1.3); PHOSPHOROUS 3.8 mg/dL (2.5-4.9)
[2021-05-18 10:53] LABS: BILIRUBIN,TOTAL 0.2 mg/dL (0.2-1); TOT PROT 7.2 g/dl (6.4-8.2)
[2021-05-18 13:25] VITALS: BP 112/67; PULSE 75; TEMP 98.2
[2021-05-18 13:36] LABS: ANISOCYTOSIS 1+; MACROCYTOSIS 0; PLATELET ESTIMATE NORMAL
[2021-05-18] MEDS: REMDESIVIR 100 MG in SODIUM CHLORIDE 250 ML IVPB SCH (14:53)
== END 2021-05-18 17:04 | disposition home or self-care (01) | DRG 137 ==
LOC: JER 10:24 → JERBED 19:41 → J6S 05-14 18:21
PROVIDERS: ADMIT Internal Medicine; ATTEND Internal Medicine
PROC: XW033E5 Introduction of Remdesivir Anti-infective into Peripheral Vein, Percutaneous Approach, New Technology Group 5 (ICD-10-PCS; principal; 2021-05-14)
DX: U07.1 COVID-19 (principal); J12.82 Pneumonia due to coronavirus disease 2019; J96.01 Acute respiratory failure with hypoxia; N39.0 Urinary tract infection, site not specified; B95.2 Enterococcus as the cause of diseases classified elsewhere; E66.9 Obesity, unspecified; Z68.30 Body mass index [BMI] 30.0-30.9, adult
CPT/HCPCS: 36415; 71045-TC-FY; 71275-TC; 80053; 81003; 82248; 82550; 82728; 82803; 83605; 83615; 83735; 84100; 84484; 84703; 85025; 85027; 85379; 85610; 85651; 85730; 86140; 86769; 87040; 87081; 87086; 87804; 87899; 93005; 93010; 94010; 94761; 99291; C9399; C9803; J0131; Q9967; U0003; U0005

== ENCOUNTER 2024-01-01 00:31 | Emergency (ER) | payer OTHER ==
[2024-01-01 01:06] VITALS: BP 137/93; PULSE 101; RESP 18; TEMP 98; BMI 34.9
[2024-01-01] MEDS ORDERED: diphenhydrAMINE HCL 25 MG CAPSULE (FP) PO ONE (02:18)
[2024-01-01] MEDS: diphenhydrAMINE HCL 25 MG CAPSULE (FP) PO ONE (02:21)
== END 2024-01-01 02:52 | disposition home or self-care (01) ==
LOC: JER 00:31
DX: L23.9 Allergic contact dermatitis, unspecified cause (principal); W57.XXXA Bitten or stung by nonvenomous insect and other nonvenomous arthropods, initial encounter
CPT/HCPCS: 99283-25